=== PATIENT | male | born 1955 | race Caucasian/White ===

== ENCOUNTER 2021-11-23 11:15 | Inpatient (IN) ==
[2021-11-23 14:12] LABS: Basophils % 0.3 %; Eosinophils # 0.2 K/mcL (0.0-0.6); Eosinophils % 1.7 %; Hematocrit 34.7 % (37.5-50.1); Hemoglobin 11.3 g/dL (12.9-16.9); Immature Granulocytes % 0.2 % (0-4); Lymphocytes # 1.5 K/mcL (0.6-4.6); Lymphocytes % 17.2 %; Mean Corpuscular HGB Conc 32.6 g/dL (31.6-35.5); Mean Corpuscular Hemoglobin 30.8 pg (28.0-33.3); Mean Corpuscular Volume 94.6 fL (83.0-100.0); Mean Platelet Volume 10.4 fL (9.4-12.4); Monocytes # 0.7 K/mcL (0.0-1.3); Neutrophils # 6.2 K/mcL (1.6-8.9); Platelet Count 145 K/mcL (140-400); Red Blood Count 3.67 M/mcL (4.19-5.50); Segmented Neutrophils % 72.6 %; White Blood Count 8.6 K/mcL (4.3-11.1)
[2021-11-23 14:18] LABS: Albumin 4.2 g/dL (3.5-5.7); Albumin/Globulin Ratio 1.5 (1.1-2.2); Bilirubin,Total 0.5 mg/dL (0.3-1.0); Globulin 2.8 g/dL (2.4-3.5); Magnesium 2.4 mg/dL (1.6-2.6); Potassium 6.3 mEq/L (3.5-5.1); Troponin I 0.1 ng/mL (< 0.04)
[2021-11-23 14:19] LABS: Bilirubin,Urine Negative (Negative); Blood,Urine Small (Negative); Clarity,Urine Clear (Clear); Color,Urine Colorless (Yellow); Glucose,Urine (UA) 300 mg/dL (Normal); Ketones,Urine Negative (Negative); Leukocyte Esterase,Urine Negative (Negative); Nitrite,Urine Negative (Negative); PH,Urine 6.5 pH Units (5.0-8.0); Protein,Urine >=300 mg/dL (Neg-Trace); RBC,Urine 0-3 per hpf (0-3); Specific Gravity,Urine 1.011 (1.010-1.025); Squamous Epithelial Cell,Urine Few per hpf (None-Few); Urobilinogen,Urine Normal (Normal); WBC,Urine 0-3 per hpf (0-3)
[2021-11-23 14:20] LABS: Prothrombin Time 10.7 Seconds (9.4-12.1)
[2021-11-23 14:23] LABS: Activated Partial Thrombo Time 30.1 Seconds (26.0-36.0)
[2021-11-23] MEDS ORDERED: Insulin Human Regular 5 UNIT in 0.9 % Sodium Chloride 10 ML IV ONE (14:41)
[2021-11-23] MEDS ORDERED: Furosemide 40 MG/4 ML VIAL IVP ONE (14:41)
[2021-11-23] MEDS ORDERED: *HR* Dextrose 50 % in Water (Syg) 50 ML SYRINGE IVP ONE (14:41)
[2021-11-23] MEDS ORDERED: *HR* LORazepam 2 MG/ML VIAL IVP ONE (14:52)
[2021-11-23] MEDS ORDERED: SODIUM ZIRCONIUM CYCLOSILICATE 5 GM POWD.PACK PO ONE (16:28)
[2021-11-23] MEDS ORDERED: Naloxone 0.4 MG/ML INJ IVP PRN (17:01)
[2021-11-23] MEDS: niCARdipine 20 MG/200 ML MLS IVC SCH (17:19)
[2021-11-23] MEDS ORDERED: 0.9 % Sodium Chloride 250 ML IVC PRN (18:37)
[2021-11-23] MEDS ORDERED: 0.9 % Sodium Chloride 2,000 ML PRIME SCH (18:45)
[2021-11-23 18:48] LABS: Hepatitis B Surface Antibody < 3.10 mIU/mL
[2021-11-23] MEDS: *HR* LORazepam 2 MG/ML VIAL IVP PRN (18:49)
[2021-11-23 18:59] LABS: Hepatitis B Surface Antigen Nonreactive (Nonreactive)
[2021-11-23] MEDS ORDERED: *HR* LORazepam 2 MG/ML VIAL IVP STA (20:42)
[2021-11-23] MEDS: Melatonin 3 MG TABLET PO SCH (20:57)
[2021-11-24] MEDS: *HR* LORazepam 2 MG/ML VIAL IVP PRN (00:52)
[2021-11-24 01:49] LABS: Basophils % 0.4 %; Eosinophils # 0.2 K/mcL (0.0-0.6); Eosinophils % 1.9 %; Hemoglobin 11.5 g/dL (12.9-16.9); Immature Granulocytes % 0.3 % (0-4); Lymphocytes # 1.1 K/mcL (0.6-4.6); Lymphocytes % 11.8 %; Mean Corpuscular HGB Conc 34.8 g/dL (31.6-35.5); Mean Corpuscular Hemoglobin 31.6 pg (28.0-33.3); Mean Corpuscular Volume 90.7 fL (83.0-100.0); Mean Platelet Volume 10.9 fL (9.4-12.4); Monocytes # 0.9 K/mcL (0.0-1.3); Monocytes % 9.5 %; Neutrophils # 7.2 K/mcL (1.6-8.9); Platelet Count 142 K/mcL (140-400); Red Blood Count 3.64 M/mcL (4.19-5.50); Red Cell Distribution Width 14.6 % (11.5-14.5); Segmented Neutrophils % 76.1 %; White Blood Count 9.4 K/mcL (4.3-11.1)
[2021-11-24 02:09] LABS: Chol/HDL Ratio 2.3 (0-4.9)
[2021-11-24 02:20] LABS: Thyroid Stimulating Hormone 1.973 mcIU/mL (0.340-5.600)
[2021-11-24 02:21] LABS: Calcium 10.1 mg/dL (8.6-10.3); Potassium 3.8 mEq/L (3.5-5.1)
[2021-11-24 02:27] LABS: Calcium 10.2 mg/dL (8.6-10.3); Potassium 3.8 mEq/L (3.5-5.1)
[2021-11-24] MEDS ORDERED: Ondansetron 4 MG/2 ML VIAL IVP PRN (06:17)
[2021-11-24] MEDS: niCARdipine 20 MG/200 ML MLS IVC SCH ×6 (07:50→19:27)
[2021-11-24] MEDS: Aspirin Enteric Coated 81 MG Tablet PO SCH (09:57)
[2021-11-24 16:39] LABS: Estimated Average Glucose 114 mg/dl; Hemoglobin A1C 5.6 %
[2021-11-24] MEDS: Melatonin 3 MG TABLET PO SCH (20:20)
[2021-11-25] MEDS: niCARdipine 20 MG/200 ML MLS IVC SCH ×4 (02:27→12:09)
[2021-11-25] MEDS: Acetaminophen 325 MG TABLET PO PRN (04:17)
[2021-11-25] MEDS ORDERED: 0.9 % Sodium Chloride 250 ML IVC PRN (07:17)
[2021-11-25] MEDS ORDERED: Ethyl Chloride Spray Bottle (104 SPRAY/BOTTLE) TP PRN (07:28)
[2021-11-25] MEDS: Aspirin Enteric Coated 81 MG Tablet PO SCH (08:08)
[2021-11-25 08:17] LABS: Eosinophils % 2.1 %; Mean Corpuscular Volume 94.6 fL (83.0-100.0)
[2021-11-25 08:19] LABS: Basophils # 0.1 K/mcL (0.0-0.2); Basophils % 0.7 %; Eosinophils # 0.2 K/mcL (0.0-0.6); Hematocrit 31.6 % (37.5-50.1); Hemoglobin 10.6 g/dL (12.9-16.9); Immature Granulocytes % 0.3 % (0-4); Immature Platelets 7.3 % (1.1-6.1); Lymphocytes # 1.4 K/mcL (0.6-4.6); Lymphocytes % 16.2 %; Mean Corpuscular HGB Conc 33.5 g/dL (31.6-35.5); Mean Corpuscular Hemoglobin 31.7 pg (28.0-33.3); Mean Platelet Volume 11.2 fL (9.4-12.4); Monocytes # 1.3 K/mcL (0.0-1.3); Platelet Count 129 K/mcL (140-400); Red Blood Count 3.34 M/mcL (4.19-5.50); Red Cell Distribution Width 14.9 % (11.5-14.5); Segmented Neutrophils % 65.7 %; White Blood Count 8.6 K/mcL (4.3-11.1)
[2021-11-25 08:20] LABS: Neutrophils # 5.7 K/mcL (1.6-8.9)
[2021-11-25 08:53] LABS: Albumin 3.7 g/dL (3.5-5.7); Albumin/Globulin Ratio 1.5 (1.1-2.2); Bilirubin,Total 0.4 mg/dL (0.3-1.0); Calcium 10.2 mg/dL (8.6-10.3); Globulin 2.5 g/dL (2.4-3.5); Potassium 4.9 mEq/L (3.5-5.1); Total Protein 6.2 g/dL (6.4-8.9)
[2021-11-25] MEDS: amLODIPine 5 MG TABLET PO SCH (12:26)
[2021-11-25] MEDS: *HR* LORazepam 2 MG/ML VIAL IVP PRN ×2 (14:31→20:15)
[2021-11-25] MEDS: Melatonin 3 MG TABLET PO SCH (20:15)
[2021-11-25] MEDS ORDERED: Haloperidol Lactate 5 MG/ML VIAL IVP ONE (23:55)
[2021-11-26 04:39] LABS: Basophils % 0.2 %; Red Cell Distribution Width 14.4 % (11.5-14.5)
[2021-11-26 04:41] LABS: Eosinophils # 0.2 K/mcL (0.0-0.6); Eosinophils % 2.5 %; Hematocrit 30.5 % (37.5-50.1); Hemoglobin 10.3 g/dL (12.9-16.9); Immature Granulocytes % 0.7 % (0-4); Immature Platelets 8.5 % (1.1-6.1); Lymphocytes # 1.7 K/mcL (0.6-4.6); Lymphocytes % 18.4 %; Mean Corpuscular HGB Conc 33.8 g/dL (31.6-35.5); Mean Corpuscular Hemoglobin 31.7 pg (28.0-33.3); Mean Corpuscular Volume 93.8 fL (83.0-100.0); Mean Platelet Volume 11.3 fL (9.4-12.4); Monocytes # 1.5 K/mcL (0.0-1.3); Monocytes % 16.8 %; Neutrophils # 5.6 K/mcL (1.6-8.9); Platelet Count 122 K/mcL (140-400); Red Blood Count 3.25 M/mcL (4.19-5.50); Segmented Neutrophils % 61.4 %; White Blood Count 9.1 K/mcL (4.3-11.1)
[2021-11-26 04:50] LABS: Albumin 3.5 g/dL (3.5-5.7); Albumin/Globulin Ratio 1.3 (1.1-2.2); Bilirubin,Total 0.3 mg/dL (0.3-1.0); Calcium 10.2 mg/dL (8.6-10.3); Globulin 2.6 g/dL (2.4-3.5); Potassium 4.7 mEq/L (3.5-5.1); Total Protein 6.1 g/dL (6.4-8.9)
[2021-11-26] MEDS: Aspirin Enteric Coated 81 MG Tablet PO SCH (09:20)
[2021-11-26] MEDS: amLODIPine 5 MG TABLET PO SCH (09:20)
[2021-11-26] MEDS: *HR* Heparin 5,000 UNIT/ML VIAL SQ SCH (17:56)
[2021-11-26] MEDS: Melatonin 3 MG TABLET PO SCH (20:36)
[2021-11-26] MEDS ORDERED: Haloperidol Lactate 5 MG/ML VIAL IM ONE (22:09)
[2021-11-27] MEDS: Acetaminophen 325 MG TABLET PO PRN (00:28)
[2021-11-27 01:20] LABS: Basophils % 0.3 %; Eosinophils # 0.3 K/mcL (0.0-0.6); Eosinophils % 2.6 %; Hematocrit 28.9 % (37.5-50.1); Hemoglobin 9.7 g/dL (12.9-16.9); Immature Granulocytes % 0.4 % (0-4); Lymphocytes # 1.6 K/mcL (0.6-4.6); Lymphocytes % 14.8 %; Mean Corpuscular HGB Conc 33.6 g/dL (31.6-35.5); Mean Corpuscular Hemoglobin 31.3 pg (28.0-33.3); Mean Corpuscular Volume 93.2 fL (83.0-100.0); Monocytes # 1.4 K/mcL (0.0-1.3); Monocytes % 13.4 %; Neutrophils # 7.3 K/mcL (1.6-8.9); Platelet Count 132 K/mcL (140-400); Red Cell Distribution Width 14.3 % (11.5-14.5); Segmented Neutrophils % 68.5 %; White Blood Count 10.7 K/mcL (4.3-11.1)
[2021-11-27 01:39] LABS: Albumin 3.5 g/dL (3.5-5.7); Albumin/Globulin Ratio 1.3 (1.1-2.2); Bilirubin,Total 0.3 mg/dL (0.3-1.0); Calcium 10.7 mg/dL (8.6-10.3); Globulin 2.7 g/dL (2.4-3.5); Potassium 5.3 mEq/L (3.5-5.1); Total Protein 6.2 g/dL (6.4-8.9)
[2021-11-27] MEDS: *HR* Heparin 5,000 UNIT/ML VIAL SQ SCH ×2 (06:01→17:20)
[2021-11-27] MEDS: Aspirin Enteric Coated 81 MG Tablet PO SCH (08:41)
[2021-11-27] MEDS ORDERED: 0.9 % Sodium Chloride 250 ML IVC PRN (09:12)
[2021-11-27] MEDS: amLODIPine 5 MG TABLET PO SCH (13:42)
[2021-11-27] MEDS: Simethicone 80 MG TAB.CHEW PO PRN (13:43)
[2021-11-27] MEDS: *HR* LORazepam 2 MG/ML VIAL IVP PRN (16:04)
[2021-11-27] MEDS: Melatonin 3 MG TABLET PO SCH (21:06)
[2021-11-28] MEDS: Nicotine 21 MG PATCH.TD24 TD SCH (00:57)
[2021-11-28] MEDS: *HR* LORazepam 2 MG/ML VIAL IVP PRN ×2 (02:13→23:37)
[2021-11-28] MEDS: Simethicone 80 MG TAB.CHEW PO PRN (02:13)
[2021-11-28] MEDS: *HR* Heparin 5,000 UNIT/ML VIAL SQ SCH ×2 (05:47→16:51)
[2021-11-28] MEDS: amLODIPine 5 MG TABLET PO SCH (08:46)
[2021-11-28] MEDS: Aspirin Enteric Coated 81 MG Tablet PO SCH (08:48)
[2021-11-28 10:05] LABS: Basophils % 0.3 %; Eosinophils # 0.3 K/mcL (0.0-0.6); Eosinophils % 2.2 %; Hematocrit 29.6 % (37.5-50.1); Hemoglobin 9.6 g/dL (12.9-16.9); Immature Granulocytes % 0.4 % (0-4); Lymphocytes # 1.3 K/mcL (0.6-4.6); Lymphocytes % 10.5 %; Mean Corpuscular HGB Conc 32.4 g/dL (31.6-35.5); Mean Corpuscular Hemoglobin 30.9 pg (28.0-33.3); Mean Corpuscular Volume 95.2 fL (83.0-100.0); Mean Platelet Volume 11.1 fL (9.4-12.4); Monocytes # 1.5 K/mcL (0.0-1.3); Monocytes % 11.9 %; Neutrophils # 9.1 K/mcL (1.6-8.9); Platelet Count 147 K/mcL (140-400); Red Blood Count 3.11 M/mcL (4.19-5.50); Red Cell Distribution Width 14.5 % (11.5-14.5); Segmented Neutrophils % 74.7 %; White Blood Count 12.2 K/mcL (4.3-11.1)
[2021-11-28 10:23] LABS: Albumin 3.5 g/dL (3.5-5.7); Albumin/Globulin Ratio 1.5 (1.1-2.2); Bilirubin,Total 0.3 mg/dL (0.3-1.0); Calcium 10.7 mg/dL (8.6-10.3); Globulin 2.4 g/dL (2.4-3.5); Potassium 5.8 mEq/L (3.5-5.1); Total Protein 5.9 g/dL (6.4-8.9)
[2021-11-28] MEDS: SODIUM ZIRCONIUM CYCLOSILICATE 5 GM POWD.PACK PO SCH ×3 (12:02→20:53)
[2021-11-28] MEDS: Melatonin 3 MG TABLET PO SCH ×2 (20:54→23:37)
[2021-11-29] MEDS: Nicotine 21 MG PATCH.TD24 TD SCH (00:06)
[2021-11-29 02:18] LABS: Basophils % 0.4 %; Eosinophils # 0.3 K/mcL (0.0-0.6); Eosinophils % 2.6 %; Hematocrit 27.3 % (37.5-50.1); Hemoglobin 8.9 g/dL (12.9-16.9); Immature Granulocytes % 0.3 % (0-4); Lymphocytes # 1.6 K/mcL (0.6-4.6); Lymphocytes % 14.3 %; Mean Corpuscular HGB Conc 32.6 g/dL (31.6-35.5); Mean Corpuscular Hemoglobin 30.7 pg (28.0-33.3); Mean Corpuscular Volume 94.1 fL (83.0-100.0); Mean Platelet Volume 10.6 fL (9.4-12.4); Monocytes # 1.5 K/mcL (0.0-1.3); Monocytes % 13.3 %; Neutrophils # 7.8 K/mcL (1.6-8.9); Platelet Count 141 K/mcL (140-400); Red Cell Distribution Width 14.2 % (11.5-14.5); Segmented Neutrophils % 69.1 %; White Blood Count 11.3 K/mcL (4.3-11.1)
[2021-11-29 02:39] LABS: Albumin 3.4 g/dL (3.5-5.7); Albumin/Globulin Ratio 1.4 (1.1-2.2); Bilirubin,Total 0.3 mg/dL (0.3-1.0); Calcium 10.5 mg/dL (8.6-10.3); Globulin 2.5 g/dL (2.4-3.5); Potassium 6.1 mEq/L (3.5-5.1); Total Protein 5.9 g/dL (6.4-8.9)
[2021-11-29] MEDS ORDERED: 0.9 % Sodium Chloride 250 ML IVC PRN (07:41)
[2021-11-29] MEDS: *HR* Heparin 5,000 UNIT/ML VIAL SQ SCH ×2 (08:20→16:06)
[2021-11-29] MEDS: Aspirin Enteric Coated 81 MG Tablet PO SCH (08:28)
[2021-11-29] MEDS: amLODIPine 5 MG TABLET PO SCH (08:40)
[2021-11-29] MEDS: Fluticasone Propionate Nasal 50 MCG/SPRAY BOTTLE NS PRN (08:46)
[2021-11-29] MEDS: Tiotropium 10 INH DOSE IH SCH (09:44)
[2021-11-29] MEDS ORDERED: *HR* Dextrose 50 % in Water (Syg) 50 ML SYRINGE IVP ONE (15:25)
[2021-11-29] MEDS ORDERED: Insulin Human Regular 10 UNIT in 0.9 % Sodium Chloride 10 ML IV ONE (15:25)
[2021-11-29] MEDS ORDERED: Calcium Gluconate 1gm/50mL 1 GM/50 ML BAG IVPB ONE (15:26)
[2021-11-29] MEDS: Melatonin 3 MG TABLET PO SCH (21:06)
[2021-11-29] MEDS: *HR* LORazepam 2 MG/ML VIAL IVP PRN (23:08)
[2021-11-30] MEDS: Nicotine 21 MG PATCH.TD24 TD SCH (01:25)
[2021-11-30 02:51] LABS: Calcium 10.2 mg/dL (8.6-10.3); Potassium 6.4 mEq/L (3.5-5.1)
[2021-11-30] MEDS: *HR* Heparin 5,000 UNIT/ML VIAL SQ SCH ×2 (04:58→16:53)
[2021-11-30] MEDS ORDERED: 0.9 % Sodium Chloride 250 ML IVC PRN (07:50)
[2021-11-30] MEDS: Tiotropium 10 INH DOSE IH SCH (10:00)
[2021-11-30] MEDS: Aspirin Enteric Coated 81 MG Tablet PO SCH (10:33)
[2021-11-30] MEDS: amLODIPine 5 MG TABLET PO SCH (10:33)
[2021-11-30] MEDS: SODIUM ZIRCONIUM CYCLOSILICATE 5 GM POWD.PACK PO SCH ×2 (12:10→21:14)
[2021-11-30] MEDS: Loratadine 10 MG TABLET PO SCH (16:02)
[2021-11-30] MEDS: Fluticasone Propionate Nasal 50 MCG/SPRAY BOTTLE NS PRN (16:03)
[2021-11-30] MEDS: *HR* LORazepam 2 MG/ML VIAL IVP PRN (21:15)
[2021-11-30] MEDS: Melatonin 3 MG TABLET PO SCH (21:15)
[2021-11-30] MEDS: Simethicone 80 MG TAB.CHEW PO PRN (21:20)
[2021-12-01] MEDS: Nicotine 21 MG PATCH.TD24 TD SCH (01:23)
[2021-12-01] MEDS: *HR* Heparin 5,000 UNIT/ML VIAL SQ SCH ×2 (04:59→17:22)
[2021-12-01 06:58] LABS: Calcium 10.6 mg/dL (8.6-10.3); Potassium 6.2 mEq/L (3.5-5.1)
[2021-12-01] MEDS: Tiotropium 10 INH DOSE IH SCH (07:37)
[2021-12-01] MEDS: Loratadine 10 MG TABLET PO SCH (09:07)
[2021-12-01] MEDS: amLODIPine 5 MG TABLET PO SCH (09:07)
[2021-12-01] MEDS: Fluticasone Propionate Nasal 50 MCG/SPRAY BOTTLE NS PRN (09:08)
[2021-12-01] MEDS: Aspirin Enteric Coated 81 MG Tablet PO SCH (09:08)
[2021-12-01] MEDS: Simethicone 80 MG TAB.CHEW PO PRN ×2 (09:11→21:17)
[2021-12-01] MEDS ORDERED: 0.9 % Sodium Chloride 250 ML IVC PRN (10:55)
[2021-12-01] MEDS ORDERED: *HR* LORazepam 1 MG TABLET PO ONE (12:00)
[2021-12-01] MEDS: *HR* LORazepam 2 MG/ML VIAL IVP PRN (21:10)
[2021-12-01] MEDS: traZODone 50 MG TABLET PO PRN (21:11)
[2021-12-01] MEDS: Melatonin 3 MG TABLET PO SCH (21:11)
[2021-12-02] MEDS: Nicotine 21 MG PATCH.TD24 TD SCH (01:54)
[2021-12-02] MEDS: *HR* Heparin 5,000 UNIT/ML VIAL SQ SCH ×2 (06:00→16:03)
[2021-12-02 06:06] LABS: Calcium 10.4 mg/dL (8.6-10.3); Potassium 5.8 mEq/L (3.5-5.1)
[2021-12-02] MEDS: Tiotropium 10 INH DOSE IH SCH (07:38)
[2021-12-02] MEDS: Loratadine 10 MG TABLET PO SCH (09:07)
[2021-12-02] MEDS: amLODIPine 5 MG TABLET PO SCH (09:07)
[2021-12-02] MEDS: Aspirin Enteric Coated 81 MG Tablet PO SCH (09:10)
[2021-12-02] MEDS: Simethicone 80 MG TAB.CHEW PO PRN ×2 (09:13→21:21)
[2021-12-02] MEDS: SODIUM ZIRCONIUM CYCLOSILICATE 5 GM POWD.PACK PO SCH (10:40)
[2021-12-02] MEDS: Acetaminophen 325 MG TABLET PO PRN ×2 (13:36→21:20)
[2021-12-02] MEDS: traZODone 50 MG TABLET PO PRN (21:20)
[2021-12-03] MEDS: *HR* LORazepam 2 MG/ML VIAL IVP PRN ×2 (00:13→21:40)
[2021-12-03] MEDS: Nicotine 21 MG PATCH.TD24 TD SCH ×2 (00:14→00:16)
[2021-12-03 04:05] LABS: Calcium 10.3 mg/dL (8.6-10.3)
[2021-12-03] MEDS: *HR* Heparin 5,000 UNIT/ML VIAL SQ SCH ×2 (05:11→17:31)
[2021-12-03] MEDS: Tiotropium 10 INH DOSE IH SCH (07:21)
[2021-12-03] MEDS: amLODIPine 5 MG TABLET PO SCH (09:03)
[2021-12-03] MEDS: Aspirin Enteric Coated 81 MG Tablet PO SCH (09:03)
[2021-12-03] MEDS: Loratadine 10 MG TABLET PO SCH (09:03)
[2021-12-03] MEDS: SODIUM ZIRCONIUM CYCLOSILICATE 5 GM POWD.PACK PO SCH (09:04)
[2021-12-03] MEDS ORDERED: 0.9 % Sodium Chloride 250 ML IVC PRN (14:51)
[2021-12-03] MEDS: traZODone 50 MG TABLET PO PRN (21:31)
[2021-12-03] MEDS: Melatonin 3 MG TABLET PO SCH (21:31)
[2021-12-03] MEDS: Simethicone 80 MG TAB.CHEW PO PRN (21:40)
[2021-12-04] MEDS: Nicotine 21 MG PATCH.TD24 TD SCH (00:53)
[2021-12-04] MEDS: *HR* Heparin 5,000 UNIT/ML VIAL SQ SCH ×2 (05:57→15:25)
[2021-12-04] MEDS: Tiotropium 10 INH DOSE IH SCH (07:39)
[2021-12-04] MEDS: Simethicone 80 MG TAB.CHEW PO PRN ×2 (08:36→20:35)
[2021-12-04] MEDS: amLODIPine 5 MG TABLET PO SCH (08:36)
[2021-12-04] MEDS: Loratadine 10 MG TABLET PO SCH (08:36)
[2021-12-04] MEDS: SODIUM ZIRCONIUM CYCLOSILICATE 5 GM POWD.PACK PO SCH (08:37)
[2021-12-04] MEDS: Aspirin Enteric Coated 81 MG Tablet PO SCH (08:39)
[2021-12-04 13:27] LABS: Basophils # 0.1 K/mcL (0.0-0.2); Basophils % 0.7 %; Eosinophils # 0.2 K/mcL (0.0-0.6); Eosinophils % 2.8 %; Hematocrit 27.2 % (37.5-50.1); Hemoglobin 9.1 g/dL (12.9-16.9); Immature Granulocytes % 0.6 % (0-4); Lymphocytes # 1.4 K/mcL (0.6-4.6); Lymphocytes % 16.4 %; Mean Corpuscular HGB Conc 33.5 g/dL (31.6-35.5); Mean Corpuscular Hemoglobin 31.9 pg (28.0-33.3); Mean Corpuscular Volume 95.4 fL (83.0-100.0); Mean Platelet Volume 9.9 fL (9.4-12.4); Monocytes # 1.2 K/mcL (0.0-1.3); Monocytes % 14.6 %; Neutrophils # 5.3 K/mcL (1.6-8.9); Platelet Count 169 K/mcL (140-400); Red Blood Count 2.85 M/mcL (4.19-5.50); Red Cell Distribution Width 14.3 % (11.5-14.5); Segmented Neutrophils % 64.9 %; White Blood Count 8.2 K/mcL (4.3-11.1)
[2021-12-04] MEDS: *HR* LORazepam 2 MG/ML VIAL IVP PRN (20:34)
[2021-12-04] MEDS: traZODone 50 MG TABLET PO PRN (20:35)
[2021-12-04] MEDS: Melatonin 3 MG TABLET PO SCH (20:35)
[2021-12-05] MEDS: Nicotine 21 MG PATCH.TD24 TD SCH (00:49)
[2021-12-05] MEDS: *HR* Heparin 5,000 UNIT/ML VIAL SQ SCH ×2 (06:13→16:08)
[2021-12-05] MEDS: Tiotropium 10 INH DOSE IH SCH (07:34)
[2021-12-05] MEDS: Aspirin Enteric Coated 81 MG Tablet PO SCH (10:00)
[2021-12-05] MEDS: amLODIPine 5 MG TABLET PO SCH (10:02)
[2021-12-05] MEDS: SODIUM ZIRCONIUM CYCLOSILICATE 5 GM POWD.PACK PO SCH (10:03)
[2021-12-05] MEDS: Loratadine 10 MG TABLET PO SCH (10:03)
[2021-12-05] MEDS: Acetaminophen 325 MG TABLET PO PRN (10:09)
[2021-12-05] MEDS: Simethicone 80 MG TAB.CHEW PO PRN ×2 (10:11→20:13)
[2021-12-05] MEDS: *HR* LORazepam 2 MG/ML VIAL IVP PRN ×2 (13:44→20:10)
[2021-12-05] MEDS: Melatonin 3 MG TABLET PO SCH (20:10)
[2021-12-05] MEDS: traZODone 50 MG TABLET PO PRN (20:10)
[2021-12-06] MEDS: Nicotine 21 MG PATCH.TD24 TD SCH (00:12)
[2021-12-06] MEDS: *HR* Heparin 5,000 UNIT/ML VIAL SQ SCH ×2 (06:24→17:39)
[2021-12-06] MEDS: Tiotropium 10 INH DOSE IH SCH (07:40)
[2021-12-06] MEDS: Aspirin Enteric Coated 81 MG Tablet PO SCH (08:05)
[2021-12-06] MEDS: Loratadine 10 MG TABLET PO SCH (08:05)
[2021-12-06] MEDS: SODIUM ZIRCONIUM CYCLOSILICATE 5 GM POWD.PACK PO SCH ×2 (08:05→09:49)
[2021-12-06] MEDS: amLODIPine 5 MG TABLET PO SCH (08:05)
[2021-12-06 09:17] LABS: Basophils # 0.1 K/mcL (0.0-0.2); Basophils % 0.7 %; Eosinophils # 0.3 K/mcL (0.0-0.6); Eosinophils % 3.3 %; Hematocrit 27.1 % (37.5-50.1); Hemoglobin 8.8 g/dL (12.9-16.9); Immature Granulocytes % 1.2 % (0-4); Lymphocytes # 1.6 K/mcL (0.6-4.6); Lymphocytes % 19.2 %; Mean Corpuscular HGB Conc 32.5 g/dL (31.6-35.5); Mean Corpuscular Hemoglobin 30.4 pg (28.0-33.3); Mean Corpuscular Volume 93.8 fL (83.0-100.0); Mean Platelet Volume 9.9 fL (9.4-12.4); Monocytes # 0.9 K/mcL (0.0-1.3); Monocytes % 11.1 %; Neutrophils # 5.3 K/mcL (1.6-8.9); Platelet Count 212 K/mcL (140-400); Red Blood Count 2.89 M/mcL (4.19-5.50); Red Cell Distribution Width 14.1 % (11.5-14.5); Segmented Neutrophils % 64.5 %; White Blood Count 8.2 K/mcL (4.3-11.1)
[2021-12-06 09:38] LABS: Calcium 10.2 mg/dL (8.6-10.3); Potassium 6.9 mEq/L (3.5-5.1)
[2021-12-06] MEDS ORDERED: 0.9 % Sodium Chloride 250 ML IVC PRN (10:46)
[2021-12-06] MEDS ORDERED: *HR* Heparin 10,000 UNIT/10 ML VIAL IV PRN (10:46)
[2021-12-06] MEDS: Acetaminophen 325 MG TABLET PO PRN (14:22)
[2021-12-06] MEDS: *HR* LORazepam 2 MG/ML VIAL IVP PRN (18:45)
[2021-12-06] MEDS: traZODone 50 MG TABLET PO PRN (22:08)
[2021-12-06] MEDS: Melatonin 3 MG TABLET PO SCH (22:08)
[2021-12-07] MEDS: *HR* LORazepam 2 MG/ML VIAL IVP PRN ×2 (00:50→16:35)
[2021-12-07] MEDS: Nicotine 21 MG PATCH.TD24 TD SCH (01:12)
[2021-12-07] MEDS: *HR* Heparin 5,000 UNIT/ML VIAL SQ SCH ×2 (05:33→17:54)
[2021-12-07] MEDS: Tiotropium 10 INH DOSE IH SCH (07:31)
[2021-12-07] MEDS: Aspirin Enteric Coated 81 MG Tablet PO SCH (09:12)
[2021-12-07] MEDS: Loratadine 10 MG TABLET PO SCH (09:13)
[2021-12-07] MEDS: SODIUM ZIRCONIUM CYCLOSILICATE 5 GM POWD.PACK PO SCH (09:18)
[2021-12-07] MEDS: amLODIPine 5 MG TABLET PO SCH (10:49)
[2021-12-07 16:02] LABS: Basophils # 0.1 K/mcL (0.0-0.2); Basophils % 0.7 %; Eosinophils # 0.2 K/mcL (0.0-0.6); Eosinophils % 2.9 %; Hematocrit 27.3 % (37.5-50.1); Hemoglobin 9.1 g/dL (12.9-16.9); Immature Granulocytes % 1.7 % (0-4); Lymphocytes # 1.3 K/mcL (0.6-4.6); Lymphocytes % 15.7 %; Mean Corpuscular HGB Conc 33.3 g/dL (31.6-35.5); Mean Corpuscular Hemoglobin 31.5 pg (28.0-33.3); Mean Corpuscular Volume 94.5 fL (83.0-100.0); Mean Platelet Volume 9.5 fL (9.4-12.4); Monocytes % 11.4 %; Neutrophils # 5.7 K/mcL (1.6-8.9); Platelet Count 200 K/mcL (140-400); Red Blood Count 2.89 M/mcL (4.19-5.50); Red Cell Distribution Width 14.3 % (11.5-14.5); Segmented Neutrophils % 67.6 %; White Blood Count 8.4 K/mcL (4.3-11.1)
[2021-12-07] MEDS: Melatonin 3 MG TABLET PO SCH (20:07)
[2021-12-07] MEDS: traZODone 50 MG TABLET PO PRN (20:08)
[2021-12-08 01:19] LABS: Basophils # 0.1 K/mcL (0.0-0.2); Basophils % 0.7 %; Eosinophils # 0.3 K/mcL (0.0-0.6); Eosinophils % 2.8 %; Hematocrit 27.5 % (37.5-50.1); Immature Granulocytes % 1.8 % (0-4); Lymphocytes # 1.4 K/mcL (0.6-4.6); Mean Corpuscular HGB Conc 32.7 g/dL (31.6-35.5); Mean Corpuscular Hemoglobin 31.3 pg (28.0-33.3); Mean Corpuscular Volume 95.5 fL (83.0-100.0); Mean Platelet Volume 9.4 fL (9.4-12.4); Monocytes % 10.1 %; Neutrophils # 6.6 K/mcL (1.6-8.9); Platelet Count 194 K/mcL (140-400); Red Blood Count 2.88 M/mcL (4.19-5.50); Red Cell Distribution Width 14.4 % (11.5-14.5); Segmented Neutrophils % 69.6 %; White Blood Count 9.4 K/mcL (4.3-11.1)
[2021-12-08 03:42] LABS: Calcium 10.2 mg/dL (8.6-10.3); Magnesium 1.8 mg/dL (1.6-2.6); Phosphorous 8.6 mg/dL (2.7-4.5); Potassium 5.9 mEq/L (3.5-5.1)
[2021-12-08] MEDS: *HR* Heparin 5,000 UNIT/ML VIAL SQ SCH ×2 (05:18→16:49)
[2021-12-08] MEDS: Tiotropium 10 INH DOSE IH SCH (07:35)
[2021-12-08] MEDS: Loratadine 10 MG TABLET PO SCH (08:29)
[2021-12-08] MEDS: SODIUM ZIRCONIUM CYCLOSILICATE 5 GM POWD.PACK PO SCH (08:30)
[2021-12-08] MEDS: Aspirin Enteric Coated 81 MG Tablet PO SCH (08:30)
[2021-12-08] MEDS: amLODIPine 5 MG TABLET PO SCH (08:30)
[2021-12-08] MEDS: Melatonin 3 MG TABLET PO SCH (19:36)
[2021-12-08] MEDS: traZODone 50 MG TABLET PO PRN (19:36)
[2021-12-08] MEDS: *HR* LORazepam 2 MG/ML VIAL IVP PRN (19:49)
[2021-12-09] MEDS: *HR* Heparin 5,000 UNIT/ML VIAL SQ SCH (05:49)
[2021-12-09] MEDS: Acetaminophen 325 MG TABLET PO PRN (06:29)
[2021-12-09] MEDS: Tiotropium 10 INH DOSE IH SCH (08:12)
[2021-12-09] MEDS: amLODIPine 5 MG TABLET PO SCH (08:14)
[2021-12-09] MEDS: Loratadine 10 MG TABLET PO SCH (08:14)
[2021-12-09] MEDS: SODIUM ZIRCONIUM CYCLOSILICATE 5 GM POWD.PACK PO SCH (08:14)
[2021-12-09] MEDS: Aspirin Enteric Coated 81 MG Tablet PO SCH (08:14)
[2021-12-09 11:03] VITALS: BP 173/71; PULSE 68; TEMP 98.7; O2SAT 95
== END 2021-12-09 11:12 | disposition hospice, home (50) | DRG 640 ==
LOC: EDSEX → EMEROOARM 11:15 → 2ANU 11:15 → 2NNU 17:03 → 2ANU 11-24 19:18 → SUATTDRO 11-25 14:10
PROVIDERS: ADMIT Internal Medicine; ATTEND Family Medicine

== ENCOUNTER 2021-12-12 18:07 | Inpatient (IN) ==
[2021-12-12] MEDS ORDERED: 0.9 % Sodium Chloride 500 ML IVC ONE (18:43)
[2021-12-12 18:54] LABS: Basophils % 0.4 %; Eosinophils # 0.1 K/mcL (0.0-0.6); Eosinophils % 0.9 %; Hematocrit 29.1 % (37.5-50.1); Hemoglobin 9.7 g/dL (12.9-16.9); Immature Granulocytes % 0.8 % (0-4); Lymphocytes # 1.6 K/mcL (0.6-4.6); Lymphocytes % 14.8 %; Mean Corpuscular HGB Conc 33.3 g/dL (31.6-35.5); Mean Corpuscular Hemoglobin 30.8 pg (28.0-33.3); Mean Corpuscular Volume 92.4 fL (83.0-100.0); Mean Platelet Volume 8.9 fL (9.4-12.4); Monocytes # 0.7 K/mcL (0.0-1.3); Monocytes % 6.9 %; Platelet Count 176 K/mcL (140-400); Red Blood Count 3.15 M/mcL (4.19-5.50); Red Cell Distribution Width 14.6 % (11.5-14.5); Segmented Neutrophils % 76.2 %; White Blood Count 10.5 K/mcL (4.3-11.1)
[2021-12-12 19:01] LABS: INR 1.1; Prothrombin Time 12.4 Seconds (9.4-12.1)
[2021-12-12 19:04] LABS: Activated Partial Thrombo Time 30.9 Seconds (26.0-36.0)
[2021-12-12 19:13] LABS: Calcium 10.7 mg/dL (8.6-10.3); Magnesium 1.9 mg/dL (1.6-2.6); Potassium 6.9 mEq/L (3.5-5.1); Troponin I 0.08 ng/mL (< 0.04)
[2021-12-12] MEDS ORDERED: *HR* Dextrose 50 % in Water (Vial) 50 ML VIAL IVP ONE ×2 (19:18→21:23)
[2021-12-12] MEDS ORDERED: Insulin Human Regular 5 UNIT in 0.9 % Sodium Chloride 10 ML IV ONE ×2 (19:18→21:23)
[2021-12-12] MEDS ORDERED: SODIUM ZIRCONIUM CYCLOSILICATE 5 GM POWD.PACK PO ONE ×2 (19:19→19:45)
[2021-12-12 19:23] LABS: Thyroid Stimulating Hormone 3.503 mcIU/mL (0.340-5.600)
[2021-12-12] MEDS ORDERED: Albuterol Neb 7.5 MG, Sodium Chloride for inhalation 12 ML IH ONE (19:43)
[2021-12-12] MEDS ORDERED: Calcium Gluconate 1gm/50mL 1 GM/50 ML BAG IVPB ONE ×2 (19:49→19:50)
[2021-12-12 20:32] LABS: VBG HCO3 15 mEq/L (21-27); VBG PCO2 30 mmHg (41-51); VBG PH 7.29 pH Units (7.32-7.42); VBG PO2 210 mmHg (25-50)
[2021-12-12] MEDS ORDERED: Melatonin 3 MG TABLET PO PRN (20:38)
[2021-12-12] MEDS ORDERED: Naloxone 0.4 MG/ML INJ IVP PRN (20:38)
[2021-12-12] MEDS ORDERED: Ondansetron ODT 4 MG TAB.RAPDIS SL PRN (20:38)
[2021-12-12 20:58] LABS: Calcium 10.5 mg/dL (8.6-10.3); Potassium 6.4 mEq/L (3.5-5.1)
[2021-12-12] MEDS ORDERED: *HR* Metoprolol 5 MG/5 ML VIAL IVP ONE (21:22)
[2021-12-12] MEDS ORDERED: Ondansetron 4 MG/2 ML VIAL IVP PRN (22:15)
[2021-12-12] MEDS ORDERED: *HR* LORazepam 2 MG/ML VIAL IVP PRN (22:15)
[2021-12-12] MEDS ORDERED: Atropine Sulfate 1% 40 DROP/2 ML BOTTLE SL PRN (22:15)
[2021-12-12] MEDS ORDERED: Morphine Sulfate 2 MG/ML SYRINGE IVP PRN (22:15)
[2021-12-13] MEDS ORDERED: *HR* LORazepam 1 MG TABLET PO PRN (00:45)
[2021-12-13] MEDS ORDERED: haloperidoL 1 MG TABLET PO PRN ×2 (00:46→00:48)
[2021-12-13] MEDS ORDERED: *HR* OxyCODONE Immed Rel 5 MG TABLET PO PRN (00:49)
[2021-12-13] MEDS ORDERED: Ondansetron ODT 4 MG TAB.RAPDIS SL PRN (01:29)
[2021-12-13] MEDS ORDERED: carvediloL 6.25 MG TABLET PO ONE (01:37)
[2021-12-13] MEDS ORDERED: Haloperidol Oral Conc 10 MG/5 ML UDC PO PRN (10:04)
[2021-12-13 11:38] LABS: Calcium 10.4 mg/dL (8.6-10.3); Potassium 6.2 mEq/L (3.5-5.1)
[2021-12-13] MEDS: Artificial Tears SOLN 15 ML BOTTLE BOTH EYES SCH ×3 (13:59→20:05)
[2021-12-13] MEDS: haloperidoL 1 MG TABLET PO SCH ×2 (17:31→20:05)
[2021-12-14] MEDS: Artificial Tears SOLN 15 ML BOTTLE BOTH EYES SCH ×4 (10:18→19:53)
[2021-12-14] MEDS: QUEtiapine Fumarate 25 MG TABLET PO SCH (19:51)
[2021-12-14] MEDS: haloperidoL 1 MG TABLET PO SCH (21:51)
[2021-12-15] MEDS: Artificial Tears SOLN 15 ML BOTTLE BOTH EYES SCH ×4 (10:27→21:23)
[2021-12-15] MEDS ORDERED: QUEtiapine Fumarate 25 MG TABLET PO PRN (11:57)
[2021-12-15] MEDS: Acetaminophen 325 MG TABLET PO PRN (15:33)
[2021-12-15] MEDS: QUEtiapine Fumarate 25 MG TABLET PO SCH (21:22)
[2021-12-16] MEDS: Acetaminophen 325 MG TABLET PO PRN (06:38)
[2021-12-16] MEDS: Artificial Tears SOLN 15 ML BOTTLE BOTH EYES SCH ×4 (09:42→20:35)
[2021-12-16] MEDS: Tiotropium 10 INH DOSE IH SCH (09:45)
[2021-12-16] MEDS: QUEtiapine Fumarate 25 MG TABLET PO SCH (20:35)
[2021-12-17] MEDS: Tiotropium 10 INH DOSE IH SCH (07:27)
[2021-12-17] MEDS: Artificial Tears SOLN 15 ML BOTTLE BOTH EYES SCH ×4 (08:15→19:40)
[2021-12-17] MEDS ORDERED: Haloperidol Lactate 5 MG/ML VIAL IM PRN (15:14)
[2021-12-17] MEDS ORDERED: *HR* Promethazine 25 MG/ML VIAL IM ONE (19:17)
[2021-12-17] MEDS: QUEtiapine Fumarate 100 MG TABLET PO SCH (19:34)
[2021-12-18] MEDS: Acetaminophen 325 MG TABLET PO PRN (04:08)
[2021-12-18] MEDS: Tiotropium 10 INH DOSE IH SCH (07:49)
[2021-12-18] MEDS ORDERED: Ondansetron 4 MG/2 ML VIAL IVP PRN (08:06)
[2021-12-18] MEDS: Artificial Tears SOLN 15 ML BOTTLE BOTH EYES SCH ×4 (10:15→20:58)
[2021-12-18] MEDS: QUEtiapine Fumarate 25 MG TABLET PO PRN (18:19)
[2021-12-18] MEDS: QUEtiapine Fumarate 100 MG TABLET PO SCH (20:57)
[2021-12-19] MEDS: Tiotropium 10 INH DOSE IH SCH (10:09)
[2021-12-19] MEDS: QUEtiapine Fumarate 25 MG TABLET PO PRN (10:15)
[2021-12-19] MEDS: Artificial Tears SOLN 15 ML BOTTLE BOTH EYES SCH ×4 (10:17→21:42)
[2021-12-19] MEDS: QUEtiapine Fumarate 100 MG TABLET PO SCH (20:29)
[2021-12-20] MEDS: Tiotropium 10 INH DOSE IH SCH (09:36)
[2021-12-20] MEDS ORDERED: Fluticasone Propionate Nasal 50 MCG/SPRAY BOTTLE NS SCH (09:45)
[2021-12-20] MEDS: Artificial Tears SOLN 15 ML BOTTLE BOTH EYES SCH ×4 (10:09→21:05)
[2021-12-20] MEDS ORDERED: QUEtiapine Fumarate 25 MG TABLET PO SCH (10:30)
[2021-12-20 12:55] VITALS: TEMP 97.4
[2021-12-20 16:27] LABS: Adenovirus Not Detected (Not Detect); Bordetella Pertussis Not Detected (Not Detect); Chlamydophila pneumoniae Not Detected (Not Detect); Coronavirus 229E Not Detected (Not Detect); Coronavirus HKU1 Not Detected (Not Detect); Coronavirus NL63 Not Detected (Not Detect); Coronavirus OC43 Not Detected (Not Detect); Human Metapneumovirus Not Detected (Not Detect); Human Rhinovirus/Enterovirus Not Detected (Not Detect); Influenza A Subtype 2009 H1 Not Detected (Not Detect); Influenza B Not Detected (Not Detect); Mycoplasma pneumoniae Not Detected (Not Detect); Parainfluenza Virus 1 Not Detected (Not Detect); Parainfluenza Virus 2 Not Detected (Not Detect); Parainfluenza Virus 3 Not Detected (Not Detect); Parainfluenza Virus 4 Not Detected (Not Detect); Respiratory Syncytial Virus Not Detected (Not Detect); SARS-CoV-2 Not Detected (Not Detect)
[2021-12-20 17:26] VITALS: BP 175/84; PULSE 70; O2SAT 93
[2021-12-20] MEDS: QUEtiapine Fumarate 100 MG TABLET PO SCH (21:05)
== END 2021-12-20 23:59 | disposition other institution (70) | DRG 640 ==
LOC: EMEROOARM 18:07 → 2NENU 21:54 → SUATTDRO 21:54 → 2NENU 22:32 → 2ANU 12-13 00:25
PROVIDERS: ADMIT Student in an Organized Health Care Education/Training Program; ATTEND Internal Medicine